=== PATIENT | female | born 1955 | race Caucasian/White ===

== ENCOUNTER → 2017-01-19 | Outpatient (CLI) | payer BC ==
[2017-01-19 12:22] LABS: BLOOD UREA NITROGEN 16 mg/dl (7-18); BUN/CREATININE RATIO 19.5 (10-20); CALCIUM 8.9 mg/dl (8.5-10.1); CARBON DIOXIDE 27 mmol/L (21-32); CHLORIDE 105 mmol/L (98-107); GLUCOSE 93 mg/dl (70-99); SODIUM 138 mmol/L (136-145)
[2017-01-19 12:25] LABS: CHOLESTEROL 238 mg/dl (0-200); HDL CHOLESTEROL 60 mg/dl; LDL CHOLESTEROL CALCULATED 146 mg/dl; TRIGLYCERIDES 161 mg/dl (0-150); VERY LOW DENSITY LIPOPROT CALC 32 mg/dl
== END | disposition home or self-care (01) ==
LOC: C.LAB1850 09:56
PROVIDERS: ATTEND Family Medicine
DX: I10 Essential (primary) hypertension (principal); E78.5 Hyperlipidemia, unspecified

== ENCOUNTER → 2017-05-10 | Outpatient (CLI) | payer BC ==
--- NOTE | 2017-05-10 14:46 | DIAGNOSTIC IMAGING REPORT ---
L RIBS UNILATERAL WITH PA CHEST CLINICAL HISTORY: 61 years-old Female presenting with R07.81 Rib pain on left [id number]. TECHNIQUE: Frontal and oblique views of the left ribs as well as PA view of the chest were obtained. COMPARISON: None. FINDINGS: Atherosclerosis of the aortic arch. Cardiac silhouette normal in size. Mildly prominent lung markings. No focal infiltrate. No large effusion or pneumothorax. No displaced left rib fracture. Osseous structures normal. Moderate stool burden noted in the upper abdomen. IMPRESSION: 1. No displaced left rib fracture. 2. No acute cardiopulmonary disease. Electronically signed by: Sebastien Wagoner M.D. 05/10/2017 2:44 PM Dictated Date/Time: 05/10/2017 2:43 PM
== END | disposition home or self-care (01) ==
LOC: C.RAD1850 14:29
PROVIDERS: ATTEND Physician Assistant
DX: R07.81 Pleurodynia (principal)